=== PATIENT | male | born 1990 | race African-American/Black ===

== ENCOUNTER 2017-06-11 13:22 | Day surgery (SDC) | payer SELFPAY ==
[~2017-06-11] VITALS: Ht 188 cm; Wt 77.0 kg
[2017-06-11 19:32] VITALS: BP 155/90
== END 2017-06-11 21:04 | disposition home or self-care (01) ==
LOC: EME 13:22 → SDC 17:25 → ENRESERV 19:15 → 2EAST 19:26
PROC: 0RSW04Z Reposition Right Finger Phalangeal Joint with Internal Fixation Device, Open Approach (ICD-10-PCS; principal; 2017-06-11)
DX: S63.286A Dislocation of proximal interphalangeal joint of right little finger, initial encounter (principal); W50.0XXA Accidental hit or strike by another person, initial encounter; Y93.61 Activity, american tackle football; F17.200 Nicotine dependence, unspecified, uncomplicated
CPT/HCPCS: 73130; 73140; 76000; 99281; 99285; G0378; J0690; J2250; J3010; S0020